=== PATIENT | male | born 1975 | race American Indian/Alaskan Native ===

== ENCOUNTER 2016-10-12 12:27 | Emergency (ER) | payer OTHER ==
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
[2016-10-12 21:09] VITALS: BP 150/100
== END 2016-10-12 19:50 | disposition home or self-care (01) ==
LOC: ED 12:27
DX: M54.6 Pain in thoracic spine (principal); F17.200 Nicotine dependence, unspecified, uncomplicated; V49.49XA Driver injured in collision with other motor vehicles in traffic accident, initial encounter; Y93.89 Activity, other specified; Y99.8 Other external cause status; Y92.488 Other paved roadways as the place of occurrence of the external cause
CPT/HCPCS: 99282